=== PATIENT | female | born 1960 | race Caucasian/White ===

== ENCOUNTER 2019-09-25 16:22 | Inpatient (IN) | payer BC ==
[~2019-09-25] VITALS: Ht 170.2 cm; Wt 50.0 kg
[2019-09-25] MEDS ORDERED: IV NORMAL SALINE 1,000ML 1,000 ML IV SCH (17:01)
[2019-09-25] MEDS ORDERED: DEXAMETHASONE 4 MG TABLET PO ONE (17:15)
[2019-09-25] MEDS ORDERED: PROCHLORPERAZINE 10 MG/2 ML VIAL. IV ONE (17:15)
[2019-09-25] MEDS ORDERED: diphenhydrAMINE 50 MG/ML VIAL IVP ONE (17:15)
[2019-09-25 17:17] LABS: BASO # 0.1 x10^3/uL (0.0-0.2); BASO % 1 % (0-3); EOS % 0 % (0-3); HEMATOCRIT 41.5 % (36.0-47.0); HEMOGLOBIN 14.6 g/dL (12.0-15.5); LYMPH # 0.4 x10^3/uL (1.0-4.8); LYMPH % 7 % (24-48); MEAN CORPUSCULAR HEMOGLOBIN 33 pg (25-35); MEAN CORPUSCULAR HGB CONC 35 g/dL (31-37); MEAN CORPUSCULAR VOLUME 93 fL (79-100); MONO # 0.4 x10^3/uL (0.0-1.1); MONO % 8 % (0-9); NEUT # 4.4 x10^3uL (1.8-7.7); NEUT % 84 % (31-73); PLATELET COUNT 160 x10^3/uL (140-400); RED BLOOD COUNT 4.47 x10^6/uL (3.50-5.40); RED CELL DISTRIBUTION WIDTH 12.7 % (11.5-14.5); WHITE BLOOD COUNT 5.2 x10^3/uL (4.0-11.0)
[2019-09-25 17:29] LABS: ALBUMIN 3.1 g/dL (3.4-5.0); ALBUMIN/GLOBULIN RATIO 0.6 (1.0-1.7); CALCIUM 8.5 mg/dL (8.5-10.1); CREATININE 0.9 mg/dL (0.6-1.0); GFR 64.3; POTASSIUM 3.6 mmol/L (3.5-5.1); TOTAL BILIRUBIN 0.4 mg/dL (0.2-1.0); TOTAL PROTEIN 8.6 g/dL (6.4-8.2)
[2019-09-25] MEDS ORDERED: ONDANSETRON PF 4 MG/2 ML VIAL. IVP ONE (17:30)
[2019-09-25] MEDS ORDERED: IV NORMAL SALINE 1,000ML 1,000 ML IV ONE (17:45)
--- NOTE | 2019-09-25 17:46 | EKG ---
[address] [address] Test Date: 2019-09-25 Test Time: 17:18:33 Pat Name: KRISTA FLORES Department: Room: Gender: F [employer] Estimator: DARLINE : 1960 Requested By: KIM CHUA Order Number: [id number] Reading MD: Measurements Intervals [place] Rate: 91 P: 80 GA: 106 QRS: 66 QRSD: 74 T: 84 QT: 358 QTc: 442 Interpretive Statements SINUS RHYTHM VENTRICULAR PREMATURE COMPLEX(ES) QRS(T) CONTOUR ABNORMALITY CONSISTENT WITH LATERAL INFARCT PROBABLY OLD ABNORMAL ECG RI6.02 No previous ECG available for comparison
--- NOTE | 2019-09-25 17:48 | RAD ---
Exam: CT head INDICATION: Headache TECHNIQUE: Sequential axial images through the head were obtained without the administration of IV contrast. Comparisons: None FINDINGS: No focal parenchymal lesion or hemorrhage is identified. There is no midline shift or sulcal effacement. No acute vascular territory infarction is identified. Del Real-white distinction is preserved. The ventricular system is within normal limits without compression hydrocephalus. The basal cisterns are well maintained. The visualized portions of the paranasal sinuses and mastoid air cells are well-pneumatized. No acute fractures. IMPRESSION: No acute intracranial abnormality. Exposure: One or more of the following in the visualized dose reduction techniques were utilized for this examination: 1. Automated exposure control 2. Adjustment of the MA and/or KV according to patient size Use of iterative of reconstructive technique Electronically signed by: Azeem Velasquez MD (09/25/2019 5:45 PM) [id number]
--- NOTE | 2019-09-25 17:50 | RAD ---
Exam: Chest one view INDICATION: Nausea and vomiting TECHNIQUE: Frontal view of the chest Comparisons: None FINDINGS: The cardiomediastinal silhouette and pulmonary vessels are within normal limits. The lung and pleural spaces are clear. IMPRESSION: No acute cardiopulmonary process. Electronically signed by: Azeem Velasquez MD (09/25/2019 5:47 PM) [id number]
[2019-09-25] MEDS ORDERED: DEXAMETHASONE SOD PHOS 10 MG/ML VIAL. ONE (17:52)
--- NOTE | 2019-09-25 17:57 | PHYS DOC ---
General Adult EDM: Chief Complaint: MULTIPLE COMPLAINTS HPI: HPI: 58-year-old female past medical history significant for tobacco dependence presents to the ED with complaints of nausea, vomiting and diarrhea for the past 2 days, states she has not been able to eat. Also reports associated headache and myalgias. States she was tested for COVID 2 days ago but does not have the report. On no diuretics. ROS: Review of Systems: Review of Systems: Constitutional: Denies fever or chills Eyes: Denies change in visual acuity HENT: Denies nasal congestion or sore throat Respiratory: Denies cough or shortness of breath Cardiovascular: Denies chest pain or edema GI: Denies abdominal pain, nausea, vomiting, bloody stools or diarrhea : Denies dysuria Musculoskeletal: Denies back pain or joint pain Integument: Denies rash Neurologic: Denies headache, focal weakness or sensory changes Endocrine: Denies polyuria or polydipsia Lymphatic: Denies swollen glands Psychiatric: Denies depression or anxiety Heart Score: Risk Factors: Risk Factors: DM, Current or recent (<one month) smoker, HTN, HLP, family history of CAD, obesity. Risk Scores: Score 0 - 3: 2.5% MACE over next 6 weeks - Discharge Home Score 4 - 6: 20.3% MACE over next 6 weeks - Admit for Clinical Observation Score 7 - 10: 72.7% MACE over next 6 weeks - Early Invasive Strategies Current Medications: Current Meds: Current Medications Medications (Trade) Dose Ordered Sig/Adrienne Start Time Stop Time Status Last Admin Dose Admin Dexamethasone (Decadron) 10 mg 1X ONCE 09/25/19 17:15 09/25/19 17:26 DC Dexamethasone Sodium Phosphate (Decadron) 10 mg STK-MED ONCE 09/25/19 17:52 09/25/19 17:53 DC Diphenhydramine HCl (Benadryl) 25 mg 1X ONCE 09/25/19 17:15 09/25/19 17:26 DC Ondansetron HCl (Zofran) 4 mg 1X ONCE 09/25/19 17:30 09/25/19 17:31 DC Prochlorperazine Edisylate (Compazine) 10 mg 1X ONCE 09/25/19 17:15 09/25/19 17:26 DC Sodium Chloride 1,000 ml @ 100 mls/hr 1X ONCE 09/25/19 17:45 09/26/19 03:44 Allergies: Allergies: Allergies Coded Allergies Type Severity Reaction Last Updated Verified No Known Drug Allergies 09/25/19 No Physical Exam: PE: Constitutional: Well developed, well nourished, no acute distress, non-toxic appearance. [] HENT: Normocephalic, atraumatic, bilateral external ears normal, oropharynx moist, no oral exudates, nose normal. [] Eyes: PERRLA, EOMI, conjunctiva normal, no discharge. [] Neck: Normal range of motion, no tenderness, supple, no stridor. [] Cardiovascular:Heart rate regular rhythm, no murmur [] Lungs & Thorax: Bilateral breath sounds clear to auscultation [] Abdomen: Bowel sounds normal, soft, no tenderness, no masses, no pulsatile masses. [] Skin: Warm, dry, no erythema, no rash. [] Back: No tenderness, no CVA tenderness. [] Extremities: No tenderness, no cyanosis, no clubbing, ROM intact, no edema. [] Neurologic: Alert and oriented X 3, normal motor function, normal sensory function, no focal deficits noted. [] Psychologic: Affect normal, judgement normal, mood normal. [] Current Patient Data: Labs: Laboratory Tests Test 09/25/19 16:50 White Blood Count 5.2 x10^3/uL (4.0-11.0) Red Blood Count 4.47 x10^6/uL (3.50-5.40) Hemoglobin 14.6 g/dL (12.0-15.5) Hematocrit 41.5 % (36.0-47.0) Mean Corpuscular Volume 93 fL (79-100) Mean Corpuscular Hemoglobin 33 pg (25-35) Mean Corpuscular Hemoglobin Concent 35 g/dL (31-37) Red Cell Distribution Width 12.7 % (11.5-14.5) Platelet Count 160 x10^3/uL (140-400) Neutrophils (%) (Auto) 84 % (31-73) H Lymphocytes (%) (Auto) 7 % (24-48) L Monocytes (%) (Auto) 8 % (0-9) Eosinophils (%) (Auto) 0 % (0-3) Basophils (%) (Auto) 1 % (0-3) Neutrophils # (Auto) 4.4 x10^3uL (1.8-7.7) Lymphocytes # (Auto) 0.4 x10^3/uL (1.0-4.8) L Monocytes # (Auto) 0.4 x10^3/uL (0.0-1.1) Eosinophils # (Auto) 0.0 x10^3/uL (0.0-0.7) Basophils # (Auto) 0.1 x10^3/uL (0.0-0.2) Sodium Level 117 mmol/L (136-145) *L Potassium Level 3.6 mmol/L (3.5-5.1) Chloride Level 83 mmol/L (98-107) L Carbon Dioxide Level 27 mmol/L (21-32) Anion Gap 7 (6-14) Blood Urea Nitrogen 5 mg/dL (7-20) L Creatinine 0.9 mg/dL (0.6-1.0) Estimated GFR (Cockcroft-Gault) 64.3 BUN/Creatinine Ratio 6 (6-20) Glucose Level 116 mg/dL (70-99) H Lactic Acid Level 1.0 mmol/L (0.4-2.0) Calcium Level 8.5 mg/dL (8.5-10.1) Total Bilirubin 0.4 mg/dL (0.2-1.0) Aspartate Amino Transferase (AST) 17 U/L (15-37) Alanine Aminotransferase (ALT) 16 U/L (14-59) Alkaline Phosphatase 62 U/L (46-116) Creatine Kinase 28 U/L (26-192) Troponin I Quantitative < 0.017 ng/mL (0-0.055) Total Protein 8.6 g/dL (6.4-8.2) H Albumin 3.1 g/dL (3.4-5.0) L Albumin/Globulin Ratio 0.6 (1.0-1.7) L EKG: EKG: Sinus rhythm at 91 bpm, no axis deviation, normal intervals, PVCs on EKG, T wave inversion V2, no ST elevations or ST depressions Radiology/Procedures: Radiology/Procedures: IMAGING REPORT Signed PATIENT: KRISTA FLORES ACCOUNT: [id number] : 1960 LOCATION: ER AGE: 58 SEX: F EXAM STATUS: PRE ER ORD. PHYSICIAN: KIM CHUA DO REASON: headache PROCEDURE: CT HEAD WO CONTRAST Exam: CT head INDICATION: Headache TECHNIQUE: Sequential axial images through the head were obtained without the administration of IV contrast. Comparisons: None FINDINGS: No focal parenchymal lesion or hemorrhage is identified. There is no midline shift or sulcal effacement. No acute vascular territory infarction is identified. Del Real-white distinction is preserved. The ventricular system is within normal limits without compression hydrocephalus. The basal cisterns are well maintained. The visualized portions of the paranasal sinuses and mastoid air cells are well-pneumatized. No acute fractures. IMPRESSION: No acute intracranial abnormality. Exposure: One or more of the following in the visualized dose reduction techniques were utilized for this examination: 1. Automated exposure control 2. Adjustment of the MA and/or KV according to patient size Use of iterative of reconstructive technique Electronically signed by: Azeem Reid MD (09/25/2019 5:45 PM) [id number] IMAGING REPORT Signed PATIENT: KRISTA FLORES ACCOUNT: [id number] : 1960 LOCATION: ER AGE: 58 SEX: F EXAM STATUS: PRE ER ORD. PHYSICIAN: KIM CHUA DO REASON: n/v PROCEDURE: PORTABLE CHEST 1V Exam: Chest one view INDICATION: Nausea and vomiting TECHNIQUE: Frontal view of the chest Comparisons: None FINDINGS: The cardiomediastinal silhouette and pulmonary vessels are within normal limits. The lung and pleural spaces are clear. IMPRESSION: No acute cardiopulmonary process. Electronically signed by: Azeem Reid MD (09/25/2019 5:47 PM) [id number] DICTATED AND SIGNED BY: AZEEM REID MD DATE: 09/25/191746 CC: KIM CHUA DO ~ DICTATED AND SIGNED BY: AZEEM REID MD DATE: 09/25/191744 CC: KIM CHUA DO ~ Course & Med Decision Making: Course & Med Decision Making Pertinent Labs and Imaging studies reviewed. (See chart for details) [] Dragon Disclaimer: Dragon Disclaimer: This electronic medical record was generated, in whole or in part, using a voice recognition dictation system. Departure Departure: Impression: Primary Impression: Hyponatremia Additional Impression: Vomiting and diarrhea Disposition: ADMITTED INPATIENT Admitting Physician: David Worthy Condition: CRITICAL Justification of Admission: Justification of Admission: Justification of Admission Dx: Yes Chronic Renal Failure: Electrolyte Abnormality KIM CHUA DO Sep 25, 2019 17:57
[2019-09-25] MEDS ORDERED: POTASSIUM CHLORIDE 40 MEQ in IV NORMAL SALINE 1,000ML 1,000 ML IV ONE (18:00)
[2019-09-25] MEDS ORDERED: POTASSIUM CL 40MEQ IN 0.9%NACL 1,000 ML IV ONE (18:15)
[2019-09-25] MEDS ORDERED: POTASSIUM CL 20MEQ IN 0.9%NACL 1,000 ML IV SCH (19:15)
[2019-09-25 20:14] VITALS: BP 135/69
[2019-09-25] MEDS ORDERED: no home meds (20:31)
[2019-09-25 21:24] LABS: CALCIUM 7.9 mg/dL (8.5-10.1); CREATININE 0.7 mg/dL (0.6-1.0); GFR 85.9
== END 2019-09-25 22:05 | disposition left against medical advice (07) | DRG 641 ==
LOC: ER 16:22 → ICU 18:47
PROVIDERS: ADMIT Internal Medicine; ATTEND Internal Medicine
DX: E87.1 Hypo-osmolality and hyponatremia (principal); R11.2 Nausea with vomiting, unspecified; Z87.891 Personal history of nicotine dependence; M79.10 Myalgia, unspecified site; R19.7 Diarrhea, unspecified; Z20.828 Contact with and (suspected) exposure to other viral communicable diseases; Z53.29 Procedure and treatment not carried out because of patient's decision for other reasons
CPT/HCPCS: 36415; 70450; 71045; 80048; 80053; 82550; 83605; 84484; 85025; 87040; 93005; 96361; 96374; 96375; J0780; J1200; J8540; 99285-25; J7030; U0003-CS

== ENCOUNTER 2020-02-19 10:45 | Emergency (ER) | payer BC ==
[~2020-02-19] VITALS: Ht 170.2 cm; Wt 50.0 kg
[~2020-02-19 10:45] MED LIST: no home meds
[2020-02-19 10:52] VITALS: BP 166/76
[2020-02-19 11:19] LABS: BASO # 0.1 x10^3/uL (0.0-0.2); BASO % 1 % (0-3); EOS # 0.1 x10^3/uL (0.0-0.7); EOS % 1 % (0-3); HEMATOCRIT 39.2 % (36.0-47.0); HEMOGLOBIN 13.4 g/dL (12.0-15.5); LYMPH # 0.8 x10^3/uL (1.0-4.8); LYMPH % 14 % (24-48); MEAN CORPUSCULAR HEMOGLOBIN 33 pg (25-35); MEAN CORPUSCULAR HGB CONC 34 g/dL (31-37); MEAN CORPUSCULAR VOLUME 95 fL (79-100); MONO # 0.4 x10^3/uL (0.0-1.1); MONO % 6 % (0-9); NEUT # 4.4 x10^3uL (1.8-7.7); NEUT % 77 % (31-73); PLATELET COUNT 203 x10^3/uL (140-400); RED BLOOD COUNT 4.11 x10^6/uL (3.50-5.40); RED CELL DISTRIBUTION WIDTH 12.3 % (11.5-14.5); WHITE BLOOD COUNT 5.7 x10^3/uL (4.0-11.0)
[2020-02-19 11:27] LABS: CALCIUM 8.1 mg/dL (8.5-10.1); CREATININE 0.7 mg/dL (0.6-1.0); GFR 85.6; POTASSIUM 4.1 mmol/L (3.5-5.1)
--- NOTE | 2020-02-19 11:28 | PHYS DOC ---
Past History Past Medical History: Anxiety, Other Additional Past Medical Histor: Psychogenic polydipsia Past Surgical History: Hysterectomy Alcohol Use: Rarely Adult General Chief Complaint Chief Complaint: WEAKNESS/GENERALIZED HPI HPI Patient is a 59-year-old female presenting via POV for generalized weakness. Reports this is an acute on chronic issue. States she has history of psychogenic polydipsia, admits she drinks too much water and admits ongoing excessive water consumption. She has been trying to cut back and is incorporated Gatorade as alternative fluid of choice. States for past 1 week she has been generally weak. Patient reports going to work this morning and continued to feel weak. States she felt worse than usual today, was unsure if it was her low sodium levels or her anxiety. The more she thought about it, the more she began shaking which concerned her prompting her to come into our ER for evaluation. Denies any fever, COVID-19 contact, headache, neck pain or rigidity, blurred vision, chest pain, shortness of breath, abdominal pain, changes in bladder or bowel function, no urinary symptoms, no motor or sensory function changes. Denies any changes in home medications, no other concerning travel or ingestions Review of Systems Review of Systems Fourteen body systems of review of systems have been reviewed. See HPI for pertinent positives and negative responses, other guillermo all other systems are negative, non-pertinent or non-contributory Allergies Allergies Allergies Coded Allergies Type Severity Reaction Last Updated Verified No Known Drug Allergies 09/25/19 No Physical Exam Physical Exam Constitutional: Well developed, well nourished, no acute distress, non-toxic appearance. HENT: Normocephalic, atraumatic, bilateral external ears normal, oropharynx moist, no oral exudates, nose normal. Eyes: PERRLA, EOMI, conjunctiva normal, no discharge. Neck: Normal range of motion, no tenderness, supple, no stridor. Cardiovascular: Heart rate regular, sinus rhythm, no murmurs rubs or gallops Lungs & Thorax: Bilateral breath sounds clear to auscultation Abdomen: Bowel sounds normal, soft, no tenderness, no masses, no pulsatile masses. Nonsurgical abdomen, no peritoneal signs Skin: Warm, dry, no erythema, no rash. Back: No tenderness, no CVA tenderness. Extremities: No tenderness, no cyanosis, no clubbing, ROM intact, no edema. Neurologic: Alert and oriented X 3, grossly normal motor & sensory function, no focal deficits noted. Psychologic: Anxious mood and affect, judgment normal Current Patient Data Vital Signs Vital Signs Date Time Temp Pulse Resp B/P (MAP) Pulse Ox O2 Delivery O2 Flow Rate FiO2 02/19/20 10:52 97.6 83 16 166/76 (106) 100 Room Air Lab Results Laboratory Tests Test 02/19/20 10:59 02/19/20 11:03 White Blood Count 5.7 x10^3/uL (4.0-11.0) Red Blood Count 4.11 x10^6/uL (3.50-5.40) Hemoglobin 13.4 g/dL (12.0-15.5) Hematocrit 39.2 % (36.0-47.0) Mean Corpuscular Volume 95 fL (79-100) Mean Corpuscular Hemoglobin 33 pg (25-35) Mean Corpuscular Hemoglobin Concent 34 g/dL (31-37) Red Cell Distribution Width 12.3 % (11.5-14.5) Platelet Count 203 x10^3/uL (140-400) Neutrophils (%) (Auto) 77 % (31-73) H Lymphocytes (%) (Auto) 14 % (24-48) L Monocytes (%) (Auto) 6 % (0-9) Eosinophils (%) (Auto) 1 % (0-3) Basophils (%) (Auto) 1 % (0-3) Neutrophils # (Auto) 4.4 x10^3uL (1.8-7.7) Lymphocytes # (Auto) 0.8 x10^3/uL (1.0-4.8) L Monocytes # (Auto) 0.4 x10^3/uL (0.0-1.1) Eosinophils # (Auto) 0.1 x10^3/uL (0.0-0.7) Basophils # (Auto) 0.1 x10^3/uL (0.0-0.2) Glucose (Fingerstick) 199 mg/dL (70-99) H EKG EKG EKG ordered and interpreted by myself at 1122 hrs. as sinus rhythm at 78 bpm, unremarkable intervals, no axis deviation, no acute ischemic findings, no STEMI Radiology/Procedures Radiology/Procedures [] Heart Score HEART Score for Chest Pain: HEART Score for Chest Pain Response (Comments) Value History Slighlty/Non-Suspicious 0 ECG Normal 0 Age >45 - < 65 1 Risk Factors 1 or 2 Risk Factors 1 Troponin < Normal Limit 0 Total 2 Risk Factors: Risk Factors: DM, Current or recent (<one month) smoker, HTN, HLP, family history of CAD, obesity. Risk Scores: Risk Factors: DM, Current or recent (<one month) smoker, HTN, HLP, family history of CAD, obesity. Course & Med Decision Making Course & Med Decision Making Discussed with the patient all findings and diagnostic testing. I discussed most likely diagnosis of generalized weakness with unknown etiology. Patient's physical exam nonconcerning in addition to ER work-up. I discussed role of continued diagnostic work-up that could include further laboratory analysis and imaging studies but joint decision made to defer to outpatient setting. Patient reports "feeling better"after having time to hang out in empty ER room and calm her nerves. Admits presenting symptoms could have been exacerbated by her underlying anxiety. Joint decision that patient is returning home safe to a supportive environment with good access to PCP. As such, I stressed need for close outpatient follow-up to review today's ER visit. Strict return precautions were also discussed at length with good understanding by patient. Patient voiced understanding and agreement with the plan. Patient knows to come back for repeat evaluation if concerning signs or symptoms present prior to outpatient follow-up. Hemodynamically stable, ambulatory and well-appearing at time of disposition. Dragon Disclaimer Dragon Disclaimer This electronic medical record was generated, in whole or in part, using a voice recognition dictation system. Departure Departure: Impression: Primary Impression: Weakness Additional Impression: Anxiety about health Disposition: 01 DC HOME SELF CARE/HOMELESS Condition: GOOD Referrals: PCP,NO (PCP) Additional Instructions: As discussed prior to ER departure, your vitals, physical exam and laboratory analysis were all reassuring. You have known history of excessive water consumption and you should continue to work on this. There is discussion about further need for diagnostic work-up in ER setting but joint decision was made to defer this as no emergent and/or surgical findings were readily apparent. You have good access to care in outpatient setting with your primary care physician, I advise you contact him or her immediately after ER departure to discuss ER visit today and need for outpatient follow-up. If any concerning signs or symptoms present prior to outpatient follow-up please do not hesitate to come back for repeat evaluation. It was a pleasure to take care of you and I wish you the best going forward Problem Qualifiers ORQUIDEA MENDES DO Feb 19, 2020 11:28
[2020-02-19 11:34] LABS: ALBUMIN 3.2 g/dL (3.4-5.0); ALBUMIN/GLOBULIN RATIO 0.8 (1.0-1.7); TOTAL BILIRUBIN 0.3 mg/dL (0.2-1.0); TOTAL PROTEIN 7.2 g/dL (6.4-8.2)
[2020-02-19] MEDS ORDERED: IV NORMAL SALINE 1,000ML 1,000 ML IV ONE (12:00)
--- NOTE | 2020-02-19 13:29 | EKG ---
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
== END 2020-02-19 12:09 | disposition home or self-care (01) ==
LOC: ER 10:45
DX: R53.1 Weakness (principal); F41.9 Anxiety disorder, unspecified; Z90.710 Acquired absence of both cervix and uterus
CPT/HCPCS: 36415; 80053; 82947; 84484; 85025; 93005; 99284

== ENCOUNTER → 2020-11-04 | Outpatient (CLI) | payer BC ==
--- NOTE | 2020-11-04 16:41 | RAD ---
EXAM: CT CHEST WITHOUT CONTRAST (LDCT LUNG CANCER SCREENING). HISTORY: Risk factors for pulmonary malignancy. Cigarette smoking. TECHNIQUE: CT of the chest was performed without intravenous contrast using a low-dose lung screening protocol. Findings analysis is based on ACR Lung-RADS v1.1. *One or more of the following individual ized dose reduction techniques were utilized for this examination: 1. Automated exposure control. 2. Adjustment of the mA and/or kV according to patient size. 3. Use of iterative reconstruction technique. COMPARISON: None. FINDINGS: There is mild emphysema. There is biapical pleural parenchymal scarring. There is a partial ly calcified granuloma with adjacent pleural thickening within the lateral right upper lobe. No suspi cious noncalcified nodule is seen. The heart is normal in size. The aorta is normal in caliber. No pa thologically enlarged lymph node is seen. There is no acute finding involving the upper abdomen or os seous structures. IMPRESSION/RECOMMENDATION: 1. No suspicious or nodule. Lung RADS category 1:12 month follow up with a low dose lung cancer CT is recommended. 2. Pulmonary emphysema with biapical pleural parenchymal scarring. 3. Prominent right upper lobe granuloma with adjacent pleural parenchymal scarring. Electronically signed by: Masha Wallace MD (11/04/2020 4:38 PM) [facility]
== END ==
LOC: CT 15:24
PROVIDERS: ATTEND Internal Medicine Hematology & Oncology
DX: J43.9 Emphysema, unspecified (principal); J84.10 Pulmonary fibrosis, unspecified; F17.210 Nicotine dependence, cigarettes, uncomplicated
CPT/HCPCS: 71271

== ENCOUNTER 2021-05-28 15:48 | Emergency (ER) | payer BC ==
[~2021-05-28] VITALS: Ht 170.2 cm; Wt 55.5 kg
[2021-05-28 15:48] VITALS: BP 145/89
[2021-05-28] MEDS ORDERED: FAMOTIDINE 20 MG/2 ML VIAL IVP ONE (16:15)
[2021-05-28] MEDS ORDERED: IV NORMAL SALINE 1,000ML 1,000 ML IV ONE (16:15)
[2021-05-28] MEDS ORDERED: methylPREDNISolone SOD SUCC PF 125 MG/2 ML VIAL. IV ONE (16:15)
[2021-05-28] MEDS ORDERED: diphenhydrAMINE 50 MG/ML VIAL IVP ONE (16:15)
--- NOTE | 2021-05-28 16:18 | PHYS DOC ---
Past History Past Medical History: Anxiety, Other Additional Past Medical Histor: Psychogenic polydipsia (STEPHANIE GARCIA APRN) Past Surgical History: Hysterectomy (STEPHANIE GARCIA APRN) Alcohol Use: Rarely (STEPHANIE GARCIA APRN) General Adult EDM: Chief Complaint: ALLERGIC REACTION HPI: HPI: Patient is a 6-year-old female who presents to the emergency department today for an allergic reaction. She reports yesterday she noticed hives that started on her back and then spread to her entire body. She took 3 Benadryl and her symptoms improved. She reports that she did have some right eye swelling and felt like her upper lip was swelling and so she took 1 tablet of Benadryl 1 hour prior to arrival and she reports that the lip swelling has resolved. Patient reports that the rash is itchy. She is unsure of any new products. She denies any shortness of breath or decreased crease ability to swallow. No known allergies. (STEPHANIE GARCIA APRN) Review of Systems: Review of Systems: HENT: See HPI Respiratory: See HPI Integument: See HPI (STEPHANIE GARCIA APRN) Allergies: Allergies: Allergies Coded Allergies Type Severity Reaction Last Updated Verified No Known Drug Allergies 09/25/19 No (STEPHANIE GARCIA APRN) Physical Exam: PE: Constitutional: Well developed, well nourished, no acute distress, non-toxic appearance. [] HENT: Normocephalic, atraumatic, bilateral external ears normal, uvula midline, no trismus, patient maintaining secretions, no tonsillar enlargement or oropharyngeal edema, oropharynx moist, no oral exudates, nose normal. [] Eyes: PERRL, EOMI, conjunctiva normal, no discharge. [] Neck: Normal range of motion, no tenderness, supple, no stridor. [] Cardiovascular:Heart rate regular rhythm, no murmur [] Lungs & Thorax: Bilateral breath sounds clear to auscultation [] Abdomen: Bowel sounds normal, soft, no tenderness, no masses, no pulsatile masses. [] Skin: Warm, dry, no erythema, hive-like rash scattered to patient's back Back: No tenderness, no CVA tenderness. [] Extremities: No tenderness, no cyanosis, no clubbing, ROM intact, no edema. [] Neurologic: Alert and oriented X 3, normal motor function, normal sensory function, no focal deficits noted. [] Psychologic: Affect normal, judgement normal, mood normal. [] (STEPHANIE GARCIA APRN) EKG: EKG: [] (STEPHANIE GARCIA APRN) Radiology/Procedures: Radiology/Procedures: [] (STEPHANIE GARCIA APRN) Heart Score: C/O Chest Pain: N/A Risk Factors: Risk Factors: DM, Current or recent (<one month) smoker, HTN, HLP, family history of CAD, obesity. Risk Scores: Score 0 - 3: 2.5% MACE over next 6 weeks - Discharge Home Score 4 - 6: 20.3% MACE over next 6 weeks - Admit for Clinical Observation Score 7 - 10: 72.7% MACE over next 6 weeks - Early Invasive Strategies (STEPHANIE GARCIA APRN) Course & Med Decision Making: Course & Med Decision Making Pertinent Labs and Imaging studies reviewed. (See chart for details) [] Patient resents to the emergency department for an allergic reaction. She is reporting a hive-like rash to her back that spread to her entire body. Patient will be treated with Benadryl, Pepcid and Solu-Medrol. Following treatment in the emergency department, patient reports that she feels like the itching has improved and she feels much better and would like to go home. Patient's rash has resolved on her back. Patient will be discharged home with a steroid she is advised to take Benadryl and Pepcid at home for the rash. I discussed with patient all findings and diagnostic testing as well as the need to follow-up with PCP for further evaluation and treatment or return to the ER if any new or worsening symptoms. Strict return precautions were also discussed at length. Patient voiced understanding and agreement with the plan. Patient is hemodynamically stable at the time of disposition. (STEPHANIE GARCIA APRN) Course & Med Decision Making Did not see or evaluate patient. Did not discuss patient with KEYPUNCHER. Generally agree with KEYPUNCHER's work-up and disposition per note (PINA BISHOP MD) Dragon Disclaimer: Dragon Disclaimer: This electronic medical record was generated, in whole or in part, using a voice recognition dictation system. (STEPHANIE GARCIA APRN) Departure Departure: Impression: Primary Impression: Allergic reaction Qualified Codes: T78.40XA - Allergy, unspecified, initial encounter Disposition: HOME / SELF CARE / HOMELESS Condition: GOOD Referrals: [facility] (PCP) Patient Instructions: Rash Additional Instructions: You are seen in the emergency department today for possible allergic reaction. We treated you with Benadryl, Pepcid and a steroid. You are being discharged home with a steroid to take. If you notice rash or itching you can take Benadryl and Pepcid [id number]. Follow-up with your primary care provider on Saturday regarding your ER visit. Return to the emergency department if you develop shortness of breath, difficulty swallowing, chest pain, high fevers refractory to treatment, tractable nausea or vomiting, inability to maintain your secretions. Scripts Prednisone (PREDNISONE) 20 Mg Tablet 2 TAB PO DAILY for allergies for 5 Days, #10 TAB 0 Refills Prov: STEPHANIE GARCIA APRN 05/28/21 STEPHANIE GARCIA APRN May 28, 2021 16:18 PINA BISHOP MD May 28, 2021 19:14
[2021-05-28] MEDS ORDERED: PRED20TA PO (18:26)
== END 2021-05-28 18:36 | disposition home or self-care (01) ==
LOC: ER 15:48
DX: T78.40XA Allergy, unspecified, initial encounter (principal); X58.XXXA Exposure to other specified factors, initial encounter
CPT/HCPCS: 96361; 96374; 96375; 99284; J1200; J2930; J3490; J7030